=== PATIENT | male | born 1955 | race African-American/Black ===

== ENCOUNTER 2020-01-31 10:29 | Emergency (ER) | payer OTHER ==
[~2020-01-31] VITALS: Ht 175.3 cm; Wt 90.9 kg
--- NOTE | 2020-01-31 10:52 | PHYS DOC ---
General Adult EDM: Chief Complaint: ABDOMINAL PAIN HPI: HPI: 64-year-old male presents to the ED with abdominal pain that started 3 weeks ago. Patient describes the pain as "a nervous stomach" and localized to inferior epigastric to superior periumbilical region. Pain is rated at a 4 out of 10 and is made worse by food occasionally but not consistently. Pain was not alleviated by omeprazole which he obtained from his PCP. Patient has a past medical history of hypertension and BPH. Patient states he drinks alcohol, specifically mixed drinks, 5 drinks 2-3 times a week. Patient does not smoke. Patient denies any diarrhea, constipation, blood in stool, blood in urine, subjective fever. Review of Systems: Review of Systems: Constitutional: Denies fever or chills Eyes: Denies redness or eye pain HENT: Denies nasal congestion or sore throat Respiratory: Denies cough or shortness of breath Cardiovascular: Denies chest pain or palpitations GI: Endorses abdominal pain, denies nausea, vomiting : Denies dysuria or hematuria Musculoskeletal: Denies back pain or joint pain Integument: Denies rash or skin lesions Neurologic: Denies headache, focal weakness or sensory changes Complete systems were reviewed and found to be within normal limits, except as documented in this note. Allergies: Allergies: Allergies Coded Allergies Type Severity Reaction Last Updated Verified No Known Drug Allergies 01/31/20 No Physical Exam: PE: Constitutional: Well developed, well nourished, no acute distress, non-toxic appearance HENT: Normocephalic, atraumatic Eyes: Pupils equal but minimally reactive to light, EOMI, conjunctiva normal, no discharge, mildly icteric Neck: Normal range of motion, no tenderness, supple Lungs & Thorax: Bilateral breath sounds clear to auscultation, no wheezing Abdomen: Protuberant, tender to palpation of inferior epigastric to superior periumbilical area, to midline horizontal incision scars related to lipoma removal, no bruising, no hepatosplenomegaly Skin: Warm, dry, no erythema, no rash Back: No tenderness, no CVA tenderness Extremities: No tenderness, ROM intact, no edema Neurologic: Alert and oriented X 3, normal motor function, normal sensory function, no focal deficits noted Psychologic: Affect normal, judgment normal EKG: EK01/31/2020 @ 1058 hrs. -heart rate 66 bpm, normal sinus rhythm, QRS 80 ms, QT/QTC 376/396 ms Course & Med Decision Making: Course & Med Decision Making Pertinent Labs and Imaging studies reviewed. (See chart for details) Patient is a 64-year-old male presenting with abdominal pain that started 3 weeks ago. Physical exam was remarkable for tenderness to palpation of the inferior epigastric to superior periumbilical area. With patient's description of pain's slight association with food and a lack of other physical exam and laboratory findings, differential diagnosis is gastritis, GERD, and peptic ulcer disease. Patient will be discharged with Carafate. Patient was counseled on the importance of following up with his primary care physician and a gastroentero logist to further evaluate abdominal pain. Patient stable for discharge with outpatient follow-up with PCP. Discussed findings and plan with patient, who acknowledges understanding and agreement. Valdemar Disclaimer: Valdemar Disclaimer: This electronic medical record was generated, in whole or in part, using a voice recognition dictation system. Departure Departure Impression: Primary Impression: Abdominal pain Qualified Codes: R10.9 - Unspecified abdominal pain Disposition: HOME, SELF-CARE Condition: STABLE Referrals: TELLY HAN MD Patient Instructions: Abdominal Pain (Nonspecific) Scripts Hyoscyamine Sulfate (LEVSIN-SL) 0.125 Mg Tab.subl 0.125 MG SL Q4-6HRS PRN for PAIN, #14 TAB Prov: BELTRAN RAMOS DO 01/31/20 Sucralfate (CARAFATE) 1 Gm/10 Ml Oral.susp 10 ML PO QIDACHS, #500 ML 0 Refills before food Prov: BELTRAN RAMOS DO 01/31/20 Justicifation of Admission Dx: Justifications for Admission: Justification of Admission Dx: N/A BELTRAN RAMOS DO Jan 31, 2020 10:52
[2020-01-31 10:58] LABS: BASO % 1 % (0-3); EOS # 0.1 x10^3/uL (0.0-0.7); EOS % 2 % (0-3); HEMATOCRIT 43.7 % (39.0-53.0); HEMOGLOBIN 14.7 g/dL (13.0-17.5); LYMPH # 1.9 x10^3/uL (1.0-4.8); LYMPH % 49 % (24-48); MEAN CORPUSCULAR HEMOGLOBIN 32 pg (25-35); MEAN CORPUSCULAR HGB CONC 34 g/dL (31-37); MEAN CORPUSCULAR VOLUME 96 fL (79-100); MONO # 0.4 x10^3/uL (0.0-1.1); MONO % 9 % (0-9); NEUT # 1.6 x10^3/uL (1.8-7.7); NEUT % 39 % (31-73); PLATELET COUNT 260 x10^3/uL (140-400); RED BLOOD COUNT 4.57 x10^6/uL (4.30-5.70); RED CELL DISTRIBUTION WIDTH 14.2 % (11.5-14.5)
[2020-01-31 11:09] LABS: PROTHROMBIN TIME PATIENT 13.8 SEC (11.7-14.0)
[2020-01-31 11:21] LABS: CALCIUM 8.4 mg/dL (8.5-10.1); CREATININE 1.4 mg/dL (0.7-1.3); POTASSIUM 4.1 mmol/L (3.5-5.1)
[2020-01-31 11:26] LABS: ALBUMIN 3.2 g/dL (3.4-5.0); ALBUMIN/GLOBULIN RATIO 0.8 (1.0-1.7); MAGNESIUM 2.1 mg/dL (1.8-2.4); TOTAL BILIRUBIN 0.6 mg/dL (0.2-1.0)
[2020-01-31] MEDS ORDERED: FAMOTIDINE 20 MG/2 ML VIAL IVP ONE (11:30)
[2020-01-31] MEDS ORDERED: IV NORMAL SALINE 1000ML BAG 1,000 ML IV ONE (11:30)
[2020-01-31] MEDS ORDERED: KETOROLAC 15 MG/ML VIAL. IVP ONE (11:30)
[2020-01-31 12:25] LABS: BILIRUBIN,URINE NEGATIVE (NEG); CLARITY,URINE CLEAR; COLOR,URINE YELLOW; NITRITE,URINE NEGATIVE (NEG); PH,URINE 6.5 (<5.0-8.0); PROTEIN,URINE NEGATIVE (NEG-TRACE); UROBILINOGEN,URINE 0.2 mg/dL (0.2 mg/dL)
[2020-01-31 12:35] LABS: BACTERIA,URINE 0 /HPF (0-FEW); WBC,URINE 0 /HPF (0-4)
[2020-01-31 12:41] VITALS: BP 148/80
[2020-01-31] MEDS ORDERED: SUCR1ORA5 PO (12:48)
[2020-01-31] MEDS ORDERED: HYOS0.1265 SL (12:50)
--- NOTE | 2020-01-31 14:32 | EKG ---
[facility] [address] [place] [address] Test Date: 2020-01-31 Test Time: 10:58:01 Pat Name: TRAN MOSELEY Department: Room: Gender: M Digital [employer] Intern: : 1955 Requested By: BELTRAN RAMOS Order Number: [id number] Reading MD: Measurements Intervals [place] Rate: 66 P: 36 [place]: 170 QRS: -5 QRSD: 80 T: 17 QT: 376 QTc: 396 Interpretive Statements SINUS RHYTHM LEFTWARD AXIS OTHERWISE NORMAL ECG RI6.02 No previous ECG available for comparison
== END 2020-01-31 13:00 | disposition home or self-care (01) ==
LOC: ER 10:29
DX: R10.13 Epigastric pain (principal)
CPT/HCPCS: 36415; 80053; 81001; 82553; 83605; 83690; 83735; 84484; 85025; 85610; 85730; 93005; 96361; 96374; 96375; 99285; J1885; J3490; J7030